=== PATIENT | female | born 1980 | race Two or more races ===

== ENCOUNTER 2020-09-13 14:30 | Inpatient (IN) | payer OTHER ==
[2020-09-13] MEDS ORDERED: BETAMET ACET/BETAMET NA PH 30 MG/5 ML VIAL IM SCH (16:00)
[2020-09-13] MEDS ORDERED: AMPICILLIN SODIUM 2 GM VIAL ONE (16:07)
[2020-09-13] MEDS ORDERED: BETAMET ACET/BETAMET NA PH 30 MG/5 ML VIAL ONE (16:07)
[2020-09-13] MEDS ORDERED: AMPICILLIN SODIUM 2 GM VIAL IVPB ONE (16:10)
[2020-09-13] MEDS ORDERED: MAGNESIUM 4GM/H20 - 4 GM/100 ML IVPB IVPB ONE ×2 (16:45→16:47)
[2020-09-13] MEDS ORDERED: ELECTROLYTE-148 SOLN 1,000 ML IV SCH (16:45)
[2020-09-13] MEDS ORDERED: MAGNESIUM SULFATE 20GM/500ML - 20 GM/500 ML INFUS.BAG ONE (16:47)
[2020-09-13] MEDS ORDERED: ACETAMINOPHEN 325 MG TABLET (FP) ONE (17:06)
[2020-09-13 17:11] LABS: BASO % 0.1 % (0-2.0); EOS % 0.4 % (0-4.5); HEMATOCRIT 35.5 % (32.4-45.2); HEMOGLOBIN 12.3 GM/dL (10.7-15.3); LYMPH % 16.2 % (8-40); MCH 32.9 pg (25.7-33.7); MCHC 34.6 g/dl (32.0-36.0); MEAN PLT VOLUME 9.8 fl (7.5-11.1); MONO % 6.3 % (3.8-10.2); PLATELET COUNT 208 K/MM3 (134-434); RBC 3.74 M/mm3 (3.60-5.2); WHITE BLOOD COUNT 8.4 K/mm3 (4.0-10.0)
[2020-09-13] MEDS ORDERED: MAGNESIUM SULFATE 20GM/500ML - 20 GM/500 ML INFUS.BAG IVPB SCH (17:15)
[2020-09-13 17:19] LABS: INR 0.92 (0.83-1.09); PROTHROMBIN TIME (PATIENT) 11.3 SEC (9.7-13.0)
[2020-09-13 17:23] LABS: ACTIVATED PTT 26.7 SECONDS (25.2-36.5)
[2020-09-13 17:27] VITALS: TEMP 98.2; BMI 36.7
[2020-09-13 17:30] LABS: CALCIUM 9.1 mg/dL (8.5-10.1)
[2020-09-13] MEDS ORDERED: ACETAMINOPHEN 325 MG TABLET (FP) PO ONE (17:30)
[2020-09-13 17:31] LABS: BLOOD UREA NITROGEN 5.3 mg/dL (7-18)
[2020-09-13 17:34] LABS: CREATININE 0.4 mg/dL (0.55-1.3)
[2020-09-13] MEDS ORDERED: AMPICILLIN SODIUM 1 GM VIAL ONE (19:52)
[2020-09-13] MEDS ORDERED: AMPICILLIN SODIUM 1 GM VIAL IVPB SCH (20:00)
[2020-09-13] MEDS ORDERED: DEXTROSE 5%-LACTATED RINGERS 1,000 ML IV SCH (20:15)
[2020-09-13 20:57] VITALS: BP 131/78; PULSE 99
== END 2020-09-13 21:13 | disposition short-term general hospital (02) | DRG 566 ==
LOC: JDEL 14:30 → JLDR 15:45
PROVIDERS: ADMIT Obstetrics & Gynecology; ATTEND Obstetrics & Gynecology
DX: O36.4XX0 Maternal care for intrauterine death, not applicable or unspecified (principal); O60.03 Preterm labor without delivery, third trimester; Z3A.30 30 weeks gestation of pregnancy; O30.003 Twin pregnancy, unspecified number of placenta and unspecified number of amniotic sacs, third trimester
CPT/HCPCS: 36415; 59025; 80048; 82962; 83735; 85025; 85610; 85730; 86780; 86850; 86900; 86901; 96372; C9803; U0003